=== PATIENT | female | born 1975 | race American Indian/Alaskan Native ===

== ENCOUNTER 2017-04-30 09:33 | Outpatient (CLI) | payer BC | END 2017-04-30 19:25 | disposition home or self-care (01) | LOC: RAD 09:33 | DX: M54.2 Cervicalgia (principal); M25.511 Pain in right shoulder ==

== ENCOUNTER 2021-02-02 08:26 | Outpatient (CLI) | payer BC, OTHER | END 2021-02-02 19:31 | disposition home or self-care (01) | LOC: INF 08:26 | PROVIDERS: ATTEND Internal Medicine | DX: Z23 Encounter for immunization (principal) | CPT/HCPCS: 96372 ==

== ENCOUNTER 2021-02-22 08:32 | Outpatient (CLI) | payer BC, OTHER | END 2021-02-22 19:54 | disposition home or self-care (01) | LOC: INF | PROVIDERS: ATTEND Internal Medicine | DX: Z23 Encounter for immunization (principal) | CPT/HCPCS: 96372 ==

== ENCOUNTER 2022-02-07 08:24 | Outpatient (CLI) | payer BC | END 2022-02-07 18:59 | disposition home or self-care (01) | LOC: MAMMO 08:24 | PROVIDERS: ATTEND Obstetrics & Gynecology | DX: Z12.31 Encounter for screening mammogram for malignant neoplasm of breast (principal) ==

== ENCOUNTER → 2022-06-18 | Outpatient (CLI) | payer BC ==
[2022-06-18 20:45] LABS: PLATELET COUNT 226 K/uL (152-353)
[2022-06-18 21:00] LABS: POTASSIUM 3.8 mmol/L (3.6-5.2)
== END ==
LOC: LABW 20:25
PROVIDERS: ATTEND Radiology Diagnostic Radiology
DX: Z01.812 Encounter for preprocedural laboratory examination (principal); N92.4 Excessive bleeding in the premenopausal period
CPT/HCPCS: 36415; 80048; 85027

== ENCOUNTER 2023-02-21 08:54 | Outpatient (CLI) | payer BC | END 2023-02-21 19:17 | disposition home or self-care (01) | LOC: MAMMO 08:54 | PROVIDERS: ATTEND Internal Medicine | DX: Z12.31 Encounter for screening mammogram for malignant neoplasm of breast (principal) ==